=== PATIENT | male | born 1960 | race Caucasian/White ===

== ENCOUNTER → 2017-10-14 | Outpatient (CLI) | payer BC ==
[~2017-10-14] MED LIST: ASPIRIN E.C. 8181 MG PO; EPA FISH OIL1 SGL PO
== END ==
LOC: COL.RAD 10:59
DX: E04.2 Nontoxic multinodular goiter (principal)

== ENCOUNTER → 2017-10-21 | Outpatient (CLI) | payer BC ==
[~2017-10-21] VITALS: Ht 175.3 cm; Wt 86.4 kg
[2017-10-21 09:03] VITALS: BP 125/73; PULSE 75
[2017-10-21 10:40] VITALS: BP 130/91; PULSE 66
== END ==
LOC: COL.RAD 08:35
DX: E04.1 Nontoxic single thyroid nodule (principal); Z87.891 Personal history of nicotine dependence

== ENCOUNTER 2018-05-23 08:25 | Day surgery (SDC) | payer BC ==
[~2018-05-23] VITALS: Ht 175.3 cm; Wt 87.8 kg
[2018-05-23 09:02] VITALS: BP 117/83; PULSE 67; TEMP 97.6
[2018-05-23 10:10] VITALS: BP 126/86; PULSE 73; TEMP 98.5
[2018-05-23 10:25] VITALS: BP 116/81; PULSE 66
[2018-05-23 10:40] VITALS: BP 118/86; PULSE 68
[2018-05-23 14:24] VITALS: BP 132/83; PULSE 74
== END 2018-05-23 10:51 | disposition home or self-care (01) ==
LOC: SDCO 08:25
DX: Z12.11 Encounter for screening for malignant neoplasm of colon (principal); K21.9 Gastro-esophageal reflux disease without esophagitis
CPT/HCPCS: J2250; J3010; J7030